=== PATIENT | female | born 1970 | race Caucasian/White ===

== ENCOUNTER 2016-09-11 18:41 | Outpatient (CLI) | END 2016-09-11 18:42 | LOC: AMBL 18:41 | PROVIDERS: ATTEND Emergency Medicine | DX: R53.1 Weakness (principal); R41.0 Disorientation, unspecified; R29.810 Facial weakness; R47.01 Aphasia; E78.5 Hyperlipidemia, unspecified; I10 Essential (primary) hypertension; Z85.818 Personal history of malignant neoplasm of other sites of lip, oral cavity, and pharynx; W19.XXXA Unspecified fall, initial encounter ==